=== PATIENT | female | born 2000 | race Caucasian/White ===

== ENCOUNTER 2024-04-12 07:32 | Emergency (ER) | payer OTHER ==
[2024-04-12 07:44] VITALS: BP 120/78; PULSE 81; RESP 18; TEMP 98; BMI 27.1
[2024-04-12] MEDS ORDERED: ACETAMINOPHEN 500 MG TABLET (FP) ONE (08:35)
[2024-04-12] MEDS ORDERED: MAGNESIUM SULFATE IN WATER 2 GM/50 ML IVPB IVPB ONE (08:40)
[2024-04-12] MEDS ORDERED: methylPREDNISolone NA SUCC 125 MG/2 ML VIAL ONE (08:40)
[2024-04-12] MEDS ORDERED: ALBUTEROL SO4 2.5/IPRATROPIUM 0.5 INH SOL 3 ML VIAL.NEB. NEB ONE (08:40)
[2024-04-12] MEDS: ACETAMINOPHEN 500 MG TABLET (FP) PO ONE (08:49)
== END 2024-04-12 10:33 | disposition home or self-care (01) ==
LOC: JERFT 07:32 → JER 07:32 → JERFT 10:33
DX: M54.2 Cervicalgia (principal); R51.9 Headache, unspecified; M54.6 Pain in thoracic spine; M25.511 Pain in right shoulder; R42 Dizziness and giddiness; V49.40XA Driver injured in collision with unspecified motor vehicles in traffic accident, initial encounter; Y92.411 Interstate highway as the place of occurrence of the external cause
CPT/HCPCS: 70450-TC; 72125-TC; 99284-25